=== PATIENT | male | born 1940 | race Caucasian/White ===

== ENCOUNTER 2018-09-16 16:11 | Inpatient (IN) ==
[2018-09-16] MEDS ORDERED: methylPREDNISolone SOD SUCC 125 MG/2 ML VIAL IV ONE (16:16)
[2018-09-16] MEDS ORDERED: IPRATROPIUM/ALBUTEROL 3 ML AMPUL.NEB NEB ONE ×2 (16:16→19:32)
--- NOTE | 2018-09-16 16:22 | Emergency Department Note ---
SOB HPI - General Chief Complaint: Shortness of Breath/Dyspnea Stated Complaint: shortness of breath, labored respirations Time Seen by Provider: 09/16/18 16:15 Source: patient, EMS Mode of arrival: EMS Limitations: no limitations - History of Present Illness Patient referred over from [facility] [address] by mid-level for shortness of breath arrived by ambulance. Was given 1 DuoNeb prior to coming into the ED report states chest x-ray shows possible atelectasis but no chest x-ray was sent. Patient states he has been having some increased wheezing over the past 2 weeks. Had patient had been a heavy smoker in the past but had quit years ago he states. He has been using his pulmonary medications at homeHis temperature is 98.4 the pulse is 87 respiratory rate is 26 the blood pressure 148/76 pulse ox is reading at 90% on room air the earth observations chief scientist were getting 93% with O2. Patient denies chest pain there is been no weight gain there is been no edema to the extremities denies any history of congestive heart failure - Related Data Home Medications Medication Instructions Recorded Confirmed Budesonide/Formoterol Fumarate 10.2 gm IH BID 09/16/18 09/16/18 [Symbicort 80-4.5 Mcg Inhaler] Clopidogrel Bisulfate [Plavix] 75 mg PO DAILY 09/16/18 09/16/18 Docusate Sodium [Stool Softener] 100 mg PO DAILY 09/16/18 09/16/18 Hydrochlorothiazide [Oretic] 25 mg PO DAILY 09/16/18 09/16/18 Losartan Potassium [Cozaar] 100 mg PO DAILY 09/16/18 09/16/18 Polyethylene Glycol 8000 500 gm PO DAILY PRN 09/16/18 09/16/18 [Polyethylene Glycol] RX: Pantoprazole Sodium 40 mg PO Q48 09/16/18 09/16/18 Sertraline [Zoloft] 50 mg PO HS 09/16/18 09/16/18 Simvastatin [Zocor] 40 mg PO HS 09/16/18 09/16/18 amLODIPine BESYLATE [Amlodipine 10 mg PO DAILY 09/16/18 09/16/18 Besylate] cloNIDine HCL [Catapres] 0.1 mg PO BID 09/16/18 09/16/18 Allergies Allergy/AdvReac Type Severity Reaction Status Date / Time No Known Drug Allergies Allergy Verified 09/16/18 16:17 Review of Systems Constitutional: Denies: fever, chills Cardiovascular: Denies: chest pain, palpitations Respiratory: Reports: shortness of breath, cough. Denies: wheezes, phlegm, hemoptysis Gastrointestinal: Reports: abdominal pain. Denies: nausea, vomiting Genitourinary: Denies: dysuria, frequency, urgency Musculoskeletal: Denies: back pain, joint swelling Integumentary: Denies: rash, lesions Neurological: Denies: headache, weakness Psychiatric: Denies: anxiety, depression Endocrine: Denies: fatigue Hematological/Lymphatic: Denies: easy bleeding Allergic/Immunologic: Denies: facial swelling Past Medical History - Past Medical History Medical history: Reports: COPD, CVA Family history: Reports: no significant family history - Social History smoking status: Former smoker Alcohol use: Reports: Unknown Drug use: Reports: unknown Physical Exam Limitations: no limitations Head: atraumatic, normocephalic Eye: Present: normal appearance, PERRL ENT: normal exam, normal oropharynx Neck: Present: normal inspection, full ROM, trachea midline Chest: Present: normal inspection, symmetric chest wall rise. Absent: tenderness Respiratory: Present: wheezes Cardiovascular: Present: regular rate, normal rhythm Abdominal: Present: soft. Absent: distention, tenderness Extremities: Present: normal inspection, full ROM. Absent: tenderness Neurological: Present: alert, oriented X3, CN II-XII intact Psychiatric: Present: normal affect Skin: Present: warm, dry Course Vital Signs Temperature 98.4 F 09/16/18 16:11 Pulse Rate 87 09/16/18 16:11 Respiratory Rate 26 H 09/16/18 16:11 Blood Pressure 148/76 09/16/18 16:11 Pulse Oximetry (%) 90 09/16/18 16:11 Temperature 99.5 F H 09/16/18 22:08 Pulse Rate 91 H 09/16/18 23:40 Respiratory Rate 22 09/16/18 23:40 Blood Pressure 147/65 09/16/18 22:08 Pulse Oximetry (%) 94 09/16/18 23:40 Shortness of Breath/Dyspnea - MDM Narrative Medical decision making narrative: sats remain low. started on rocephin and zithromax after blood cultures chest x- ray shows no obvious infiltrates but possible basilar atelectasis creatinine also elevated at 3.5. Dr. Muir contacted patient to be admitted - Lab Data Result diagrams: 09/16/18 16:42 09/16/18 16:41 Lab Results 09/16/18 09/16/18 09/16/18 Range/Units 00:04 16:41 16:42 WBC 12.4 H (4.5-11.0) K/mcL RBC 4.44 L (4.50-5.90) M/mcL Hgb 13.4 L (13.5-16.5) g/dL Hct 40.3 L (41.0-55.0) % MCV 90.7 (80.0-100.0) fL MCH 30.1 (26.0-34.0) pg MCHC 33.2 (31.0-36.0) g/dL RDW 13.9 (11.5-14.5) % Plt Count 505 H (140-440) K/mcL MPV 7.6 (7.4-10.4) fL Total Counted 100 Seg Neutrophils % 68 (38-78) % Band Neutrophils % Not Reportable Lymphocytes % 9 L (15-49) % Monocytes % (Manual) 10 (1-12) % Eosinophils % (Manual) 12 H (0-7) % Basophils % (Manual) 1 (0-2) % Platelet Estimate Increased A (NORMAL) RBC Morphology Normal (NORMAL) VBG Lactic Acid (0.5-2.0) mmol/L Sodium 138 (133-145) mmol/L Potassium 3.5 (3.3-5.1) mmol/L Chloride 95 L (96-108) mmol/L Carbon Dioxide 27 (22-30) mmol/L Anion Gap 16.0 (8-16) BUN 32 H (8-23) mg/dl Creatinine 3.2 H (0.7-1.2) mg/dl GFR Calculation 17 Glucose 121 H (70-105) mg/dL Calcium 9.2 (8.6-10.4) mg/dl Total Bilirubin 0.7 (0.0-1.0) mg/dL AST 19 (0-37) U/l ALT 7 (0-40) U/l Alkaline Phosphatase 100 (39-117) U/L Total Protein 7.5 (5.9-8.4) gm/dL Albumin 3.3 (3.2-5.2) gm/dL Globulin 4.2 H (2.2-3.7) gm/dL Albumin/Globulin Ratio 0.8 L (1.0-2.3) Urine Color Yellow Urine Appearance Hazy Urine pH 5.0 (5.0-9.0) Ur Specific Jackson 1.018 (1.000-1.035) Urine Protein 30 A (NEG) mg/dL Urine Glucose (UA) Negative (NEG) mg/dL Urine Ketones Neg (NEG) mg/dL Urine Occult Blood Neg (<0.03) mg/dL Urine Nitrate Neg (NEG) Urine Bilirubin Neg (NEG) mg/dL Urine Urobilinogen Neg (NEG) mg/dL Ur Leukocyte Esterase 500 A (NEG) /uL Urine RBC 2 H (0-1) /hpf Urine WBC 72 H (0-4) /hpf Ur Squamous Epith Cells 1 (0-4) /hpf Urine Bacteria 0 (0) /hpf Hyaline Casts 21 H (0-2) /lpf Urine Mucus Few (0) /hpf Ur Culture Indicated? Yes 09/16/18 Range/Units 16:42 WBC (4.5-11.0) K/mcL RBC (4.50-5.90) M/mcL Hgb (13.5-16.5) g/dL Hct (41.0-55.0) % MCV (80.0-100.0) fL MCH (26.0-34.0) pg MCHC (31.0-36.0) g/dL RDW (11.5-14.5) % Plt Count (140-440) K/mcL MPV (7.4-10.4) fL Total Counted Seg Neutrophils % (38-78) % Band Neutrophils % Lymphocytes % (15-49) % Monocytes % (Manual) (1-12) % Eosinophils % (Manual) (0-7) % Basophils % (Manual) (0-2) % Platelet Estimate (NORMAL) RBC Morphology (NORMAL) VBG Lactic Acid 1.9 (0.5-2.0) mmol/L Sodium (133-145) mmol/L Potassium (3.3-5.1) mmol/L Chloride (96-108) mmol/L Carbon Dioxide (22-30) mmol/L Anion Gap (8-16) BUN (8-23) mg/dl Creatinine (0.7-1.2) mg/dl GFR Calculation Glucose (70-105) mg/dL Calcium (8.6-10.4) mg/dl Total Bilirubin (0.0-1.0) mg/dL AST (0-37) U/l ALT (0-40) U/l Alkaline Phosphatase (39-117) U/L Total Protein (5.9-8.4) gm/dL Albumin (3.2-5.2) gm/dL Globulin (2.2-3.7) gm/dL Albumin/Globulin Ratio (1.0-2.3) Urine Color Urine Appearance Urine pH (5.0-9.0) Ur Specific Jackson (1.000-1.035) Urine Protein (NEG) mg/dL Urine Glucose (UA) (NEG) mg/dL Urine Ketones (NEG) mg/dL Urine Occult Blood (<0.03) mg/dL Urine Nitrate (NEG) Urine Bilirubin (NEG) mg/dL Urine Urobilinogen (NEG) mg/dL Ur Leukocyte Esterase (NEG) /uL Urine RBC (0-1) /hpf Urine WBC (0-4) /hpf Ur Squamous Epith Cells (0-4) /hpf Urine Bacteria (0) /hpf Hyaline Casts (0-2) /lpf Urine Mucus (0) /hpf Ur Culture Indicated? 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
--- NOTE | 2018-09-16 16:53 | XRay Report ---
CLINICAL INFORMATION: CHEST PAIN COMPARISON: 09/16/2018 FINDINGS: Moderate cardiomegaly is unchanged. Slight mediastinal widening is also stable. Pulmonary vessels are normal. Minimal bibasilar airspace disease is likely atelectasis. It has improved considerably from previous study. No effusion IMPRESSION: Minimal bibasilar airspace disease improving is likely atelectasis. No definite infiltrate Interpreted and Authenticated by: Brent Cook 09/16/18
[2018-09-16] MEDS ORDERED: AZITHROMYCIN 500 MG in DEXTROSE 5% IN WATER 250 ML IV ONE (16:56)
[2018-09-16] MEDS ORDERED: cefTRIAXone 1 GM VIAL IV ONE (16:56)
[2018-09-16 17:14] LABS: Mean Cell Volume 90.7 fL (80.0-100.0); Mean Corpuscular HGB Conc 33.2 g/dL (31.0-36.0); Platelet Count 505 K/mcL (140-440); RBC 4.44 M/mcL (4.50-5.90); Red Cell Distribution Width 13.9 % (11.5-14.5)
[2018-09-16 17:39] LABS: ALT/SGPT 7 U/l (0-40); Albumin 3.3 gm/dL (3.2-5.2); Albumin/Globulin Ratio 0.8 (1.0-2.3); Alkaline Phosphatase 100 U/L (39-117); Blood Urea Nitrogen 32 mg/dl (8-23)
[2018-09-16 17:44] LABS: Basophils % (Manual) 1 % (0-2); Eosinophils % (Manual) 12 % (0-7); Lymphocytes % 9 % (15-49); Monocytes % (Manual) 10 % (1-12); Platelet Estimate INCREASED (NORMAL); RBC Morphology NORMAL (NORMAL); Segmented Neutrophils % 68 % (38-78)
--- NOTE | 2018-09-16 18:43 | Internal Med History&Physical ---
Medical - H&P: HPI Patient information: Note initiated : 09/16/18 at 6:38 pm Service Date, if different from initiated Date: [] Patient: Scotty Toribio a 78 y/o M admitted on for shortness of breath, labored respirations. Chief Complaint: [] History of present illness: Mr. Toribio is a 78 year old M and pulmonary, history of CVA with right-sided hemiplegia presents to the ER today for evaluation of shortness of breath. According to the patient he has been short of breath going on for a week or 2, he has shortness of breath associated with cough, chest pain associated with cough, and some sputum production. The patient also was very fatigued and tired over the last few days. He has not had much to eat or drink over the last few days. He denies any other acute complaints or concerns. He denies any headache changes in vision difficulty in swallowing denies any nausea vomiting diarrhea abdominal pain denies any bowel bladder complaints denies any new joint pains. He was seen in the clinic [facility] in [place] and then sent to the emergency room for evaluation of shortness of breath and hypoxia. He was transferred from the emergency room over there to this hospital. On presentation the patient was afebrile temperature 98.4 heart rate 88 blood pressure 148/76 breathing 27/min saturating 91% on 5 L The labs show WBC of 12.4, hemoglobin 13.4 platelets 505 lactic acid 1.9 sodium 138 potassium 3.5 bicarbonate 27 creatinine elevated at 3.2 was 1.5 in February 2018. ABG was done shows pH of 7.48 PCO2 39 PO2 60% on 5 L of oxygen. Chest x-ray shows infiltrates versus atelectasis likely atelectasis. Patient is being admitted to the hospital for further management All systems: reviewed and no additional remarkable complaints except as stated (as per HPI rest negative) Medical - H&P: PMH Medical history: CVA with right-sided hemiparesis hemiplegia BPH Hypertension Hyperlipidemia GERD COPD Morbid obesity Macular degeneration Surgical history: Right ankle surgery Family history: reviewed and not pertinent Social history: Lives with a friend who helps him take care of him, Ex-smoker Occasional EtOH Medical - H&P: Meds Home Medications Medication Instructions Recorded Confirmed Type Budesonide/Formoterol Fumarate 10.2 gm IH BID 09/16/18 09/16/18 History [Symbicort 80-4.5 Mcg Inhaler] Clopidogrel Bisulfate [Plavix] 75 mg PO DAILY 09/16/18 09/16/18 History Docusate Sodium [Stool Softener] 100 mg PO DAILY 09/16/18 09/16/18 History Hydrochlorothiazide [Oretic] 25 mg PO DAILY 09/16/18 09/16/18 History Losartan Potassium [Cozaar] 100 mg PO DAILY 09/16/18 09/16/18 History Pantoprazole Sodium 40 mg PO Q48 09/16/18 09/16/18 History Polyethylene Glycol 8000 500 gm PO DAILY PRN 09/16/18 09/16/18 History [Polyethylene Glycol] Sertraline [Zoloft] 50 mg PO HS 09/16/18 09/16/18 History Simvastatin [Zocor] 40 mg PO HS 09/16/18 09/16/18 History amLODIPine BESYLATE [Amlodipine 10 mg PO DAILY 09/16/18 09/16/18 History Besylate] cloNIDine HCL [Catapres] 0.1 mg PO BID 09/16/18 09/16/18 History Allergies Allergy/AdvReac Type Severity Reaction Status Date / Time No Known Drug Allergies Allergy Verified 09/16/18 16:17 Medical - H&P: Exam - Constitutional Vitals: Temp Pulse Resp BP Pulse Ox 98.4 F 88 27 H 129/62 91 09/16/18 16:11 09/16/18 18:02 09/16/18 18:02 09/16/18 18:02 09/16/18 18:02 Exam: GENERAL: The patient is a well-developed, morbidly obese in no apparent distress. Is alert and oriented x3. VITAL SIGNS: Reviewed and as noted elsewhere. HEENT: Head is normocephalic and atraumatic. Extraocular muscles are intact. Pupils are equal, round, and reactive to light. Nares appeared normal. Mouth a ppears any without lesions. Mucous membranes are moist. NECK: Normal to inspection, Supple, No lymphadenopathy or thyromegaly. LUNGS: Air entry equal on both sides,decreased air entry stan, proloned exp phase, bibasilar crackles. No accessory muscles of respiration, pt speaking full sentences. HEART: Regular rate and rhythm normal, S1 and S2 heard, no Gallop, S3 or Rub Noted, No Gross murmur heard. ABDOMEN: Soft, nontender, and nondistended. Positive bowel sounds. No hepatosplenomegaly was noted. Large pannus EXTREMITIES: No cyanosis, clubbing, rash, lesions or edema. NEUROLOGIC: Cranial nerves II through XII are grossly intact. Right sided weakness. PSYCHIATRIC: Normal affect, Normal Mood. Appropriate Behavior. SKIN: No ulceration or wounds noted, No jaundice, No rash noted. Medical - H&P: Reslt - Labs CBC & Chem 7: 09/16/18 16:42 09/16/18 16:41 Labs: Short CBC 09/16/18 Range/Units 16:42 WBC 12.4 H (4.5-11.0) K/mcL Hgb 13.4 L (13.5-16.5) g/dL Hct 40.3 L (41.0-55.0) % Plt Count 505 H (140-440) K/mcL BMP 09/16/18 16:41 Sodium 138 Potassium 3.5 Chloride 95 L Carbon Dioxide 27 BUN 32 H Creatinine 3.2 H Glucose 121 H Calcium 9.2 Liver Function 09/16/18 Range/Units 16:41 Total Bilirubin 0.7 (0.0-1.0) mg/dL AST 19 (0-37) U/l ALT 7 (0-40) U/l Alkaline Phosphatase 100 (39-117) U/L Albumin 3.3 (3.2-5.2) gm/dL Medical - H&P: A/P - Narrative A/P Narrative: A/P Acute COPD exacerbation Acute hypoxic respiratory failure Pneumonia, community acquired GERD Morbid Obesity BMI > 40 Hypertension Hyperlipidemia Acute on Chronic Renal Failure Plan Admit to [facility] status IV fluids IV steroids, duonebs Hold hctz/losartan Resume home meds as appropriate trend renal function DVT hep sq Diet regular Full code
[2018-09-16] MEDS ORDERED: POTASSIUM CHLORIDE 20 MEQ PACKET PO ONE (19:22)
[2018-09-16] MEDS ORDERED: ONDANSETRON 4 MG/2 ML VIAL IV PRN (19:22)
[2018-09-16] MEDS ORDERED: ACETAMINOPHEN 325 MG TABLET PO PRN (19:22)
[2018-09-16] MEDS ORDERED: oxyCODONE/APAP 5/325MG TABLET PO PRN (19:22)
[2018-09-16] MEDS ORDERED: NALOXONE HCL 0.4 MG/ML VIAL IV PRN (19:22)
[2018-09-16] MEDS ORDERED: LEVOFLOXACIN 750 MG/150 ML BAG IV ONE (19:30)
[2018-09-16] MEDS: IPRATROPIUM/ALBUTEROL 3 ML AMPUL.NEB NEB SCH ×2 (20:02→23:28)
[2018-09-16] MEDS: 0.9 % SODIUM CHLORIDE 1,000 ML IV SCH (20:03)
[2018-09-16] MEDS: HEPARIN 5,000 UNIT/ML VIAL SQ SCH (20:17)
[2018-09-16] MEDS: cloNIDine HCL 0.1 MG TABLET PO SCH (20:17)
[2018-09-16] MEDS: SIMVASTATIN 40 MG TABLET PO SCH (20:19)
[2018-09-16] MEDS: SERTRALINE 50 MG TABLET PO SCH (20:20)
[2018-09-16] MEDS: FORMOTEROL FUMARATE PO SCH (20:20)
[2018-09-16] MEDS: BUDESONIDE PO SCH (20:20)
[2018-09-16] MEDS: 0.9 % SODIUM CHLORIDE 10 ML SYRINGE IV SCH (22:39)
[2018-09-16] MEDS: methylPREDNISolone SOD SUCC 125 MG/2 ML VIAL IV SCH (22:39)
[2018-09-17 00:28] LABS: Appearance,Urine HAZY; Bacteria,Urine 0 /hpf (0); Bilirubin,Urine NEG (NEG); Color,Urine YELLOW; Glucose,Urine (UA) NEGATIVE (NEG); Leukocyte Esterase,Urine 500 /uL (NEG); Mucus,Urine FEW /hpf (0); Protein,Urine 30 mg/dL (NEG); Specific Gravity,Urine 1.018 (1.000-1.035); Urine Blood NEG mg/dL (<0.03); Urine Hyaline Cast 21 /lpf (0-2); Urine RBC 2 /hpf (0-1); Urine Squamous Epithelial Cell 1 /hpf (0-4); Urine WBC 72 /hpf (0-4); Urobilinogen,Urine NEG (NEG)
[2018-09-17] MEDS: IPRATROPIUM/ALBUTEROL 3 ML AMPUL.NEB NEB SCH ×5 (04:28→18:29)
[2018-09-17] MEDS: 0.9 % SODIUM CHLORIDE 10 ML SYRINGE IV SCH ×3 (05:32→20:43)
[2018-09-17] MEDS: methylPREDNISolone SOD SUCC 125 MG/2 ML VIAL IV SCH ×3 (05:32→21:33)
[2018-09-17 05:39] LABS: Basophils # (Auto) 0 K/mcL (0.0-0.3); Basophils % (Auto) 0 % (0.0-2.0); Eosinophils # (Auto) 0 K/mcL (0.0-0.7); Eosinophils % (Auto) 0.1 % (0.0-7.0); Granulocytes % (Auto) 94.4 % (38.0-78.0); Lymphocytes # (Auto) 0.4 K/mcL (1.5-4.8); Lymphocytes % (Auto) 4.7 % (15.5-49.0); Mean Cell Volume 91.7 fL (80.0-100.0); Mean Corpuscular HGB Conc 32.7 g/dL (31.0-36.0); Monocytes # (Auto) 0.1 K/mcL (0.1-0.9); Monocytes % (Auto) 0.8 % (1.0-12.0); Platelet Count 492 K/mcL (140-440); RBC 3.96 M/mcL (4.50-5.90); Red Cell Distribution Width 13.8 % (11.5-14.5)
[2018-09-17 05:55] LABS: ALT/SGPT 7 U/l (0-40); Albumin 3.1 gm/dL (3.2-5.2); Albumin/Globulin Ratio 0.8 (1.0-2.3); Alkaline Phosphatase 88 U/L (39-117); Bilirubin,Direct < 0.2 mg/dL (0.0-0.3); Blood Urea Nitrogen 36 mg/dl (8-23); Gamma Glutamyl Transpeptidase 19 U/L (8-61); Uric Acid 10.1 mg/dL (2.5-8.0)
[2018-09-17] MEDS: PANTOPRAZOLE 40 MG TABLET PO SCH (07:13)
[2018-09-17] MEDS: 0.9 % SODIUM CHLORIDE 1,000 ML IV SCH (07:13)
[2018-09-17] MEDS ORDERED: LEVOFLOXACIN 500 MG/100 ML BAG IV SCH (09:00)
[2018-09-17] MEDS: CLOPIDOGREL 75 MG TABLET PO SCH (10:21)
[2018-09-17] MEDS: HEPARIN 5,000 UNIT/ML VIAL SQ SCH ×2 (10:21→20:43)
[2018-09-17] MEDS: cloNIDine HCL 0.1 MG TABLET PO SCH ×2 (10:22→20:41)
[2018-09-17] MEDS: amLODIPine 10 MG TABLET PO SCH (10:22)
[2018-09-17] MEDS: FORMOTEROL FUMARATE PO SCH ×2 (10:22→20:43)
[2018-09-17] MEDS: DOCUSATE SODIUM 100 MG CAPSULE PO SCH (10:22)
[2018-09-17] MEDS: BUDESONIDE PO SCH ×2 (10:22→20:43)
--- NOTE | 2018-09-17 11:40 | Internal Med Progress Note ---
Medical - PN: Subj Patient information: Note initiated : 09/17/18 at 11:37 am Service Date, if different from initiated Date: [] Patient: Scotty Toribio 78 y/o M admitted on 09/16/18 for shortness of breath, labored respirations. Chief Complaint: [] Interval history: Mr. Toribio is a 78 year old M and pulmonary, history of CVA with right-sided hemiplegia presents to the ER today for evaluation of shortness of breath. According to the patient he has been short of breath going on for a week or 2, he has shortness of breath associated with cough, chest pain associated with cough, and some sputum production. The patient also was very fatigued and tired over the last few days. He has not had much to eat or drink over the last few days. He denies any other acute complaints or concerns. He denies any headache changes in vision difficulty in swallowing denies any nausea vomiting diarrhea abdominal pain denies any bowel bladder complaints denies any new joint pains. He was seen in the clinic [facility] in [place] and then sent to the emergency room for evaluation of shortness of breath and hypoxia. He was transferred from the emergency room over there to this hospital. On presentation the patient was afebrile temperature 98.4 heart rate 88 blood pressure 148/76 breathing 27/min saturating 91% on 5 L The labs show WBC of 12.4, hemoglobin 13.4 platelets 505 lactic acid 1.9 sodium 138 potassium 3.5 bicarbonate 27 creatinine elevated at 3.2 was 1.5 in February 2018. ABG was done shows pH of 7.48 PCO2 39 PO2 60% on 5 L of oxygen. Chest x-ray shows infiltrates versus atelectasis likely atelectasis. Patient is being admitted to the hospital for further management 09/17 Patient seen and examined no acute overnight events, feels breathing is somewhat better than yesterday. No new complaints or concerns reported. Patient does not want every 4 hours duo nebs we will switch to every 6 hours, WBC count trending down, renal function slightly worsened. Plan for renal sonogram. Pertinent ROS: Denies headache, dizziness Denies chest pain, palpitations Stable cough and shortness of breath Denies abdominal pain, nausea or vomiting. - Constitutional Vitals: Vital Signs Temp Pulse Resp BP Pulse Ox 98.5 F 85 16 137/61 94 09/17/18 07:20 09/17/18 07:41 09/17/18 07:35 09/17/18 07:20 09/17/18 07:41 Period Temp Pulse Resp BP Sys/Porter Pulse Ox Last 24 Hr 98.2 F-99.8 F 80-91 16-30 123-148/60-76 87-94 Intake and Output 09/16/18 09/17/18 09/17/18 21:59 05:59 13:59 Intake Total 400 / 880 480 / 880 1500 / 1500 Output Total 200 / 200 100 / 100 Balance 400 / 680 280 / 680 1400 / 1400 Weight 260 lb 8 oz Intake & Output: Intake & Output 09/16/18 09/17/18 09/17/18 21:59 05:59 13:59 Intake Total 400 / 880 480 / 880 1500 / 1500 Output Total 200 / 200 100 / 100 Balance 400 / 680 280 / 680 1400 / 1400 Weight 260 lb 8 oz Intake: IV 400 / 400 1000 / 1000 Sodium Chloride 0.9% 1,000 ml @ 1000 / 1000 100 mls/hr IV .Q10H [facility] Rx#: [id number] Zithromax 500 mg In Dextrose 5% 250 / 250 in Water 250 ml @ 250 mls/hr IV ONCE ONE Rx#:[id number] Oral 220 / 220 500 / 500 GI Tube Flush 260 / 260 Output: Void Amount 200 / 200 100 / 100 Other: Meal Breakfast Percent of Meal Consumed 100% Urine Appearance Clear Urine Color Dark Urine Odor Strong Stool Size Small Stool Color Brown Stool Consistency Soft # Voids 1 # Bowel Movements 1 Exam: Constitutional; Afebrile, cooperative, alert, not in distress. Eyes- No icterus, , No periorbital swelling Ears- Ext ear normal, hearing normal to conversation. Neck- Midline trachea, supple Respiratory system: Air Entry equal on both sides, decreased air entry bilaterally, mild expiratory wheezing noted, mild bilateral inspiratory crackles at the bases CVS- Rate rhythm regular, S1,S2 heard, no gallop, no rub. Abdomen- Soft nontender abdomen, no organomegaly, no tenderness, no guarding or rigidity, YARDER ENGINEER- AOOx3, moving all extremities, right-sided hemiparesis Medical - PN: Obj Da - Labs CBC & Chem 7: 09/17/18 04:15 09/17/18 04:15 Labs: Abnormal Lab Results 09/17/18 09/17/18 09/16/18 04:15 04:15 16:42 WBC 12.4 H RBC 3.96 L 4.44 L Hgb 11.9 L 13.4 L Hct 36.3 L 40.3 L Plt Count 492 H 505 H Gran % 94.4 H Lymph % (Auto) 4.7 L Walsh % (Auto) 0.8 L Lymph # (Auto) 0.4 L Lymphocytes % 9 L Eosinophils % (Manual) 12 H Platelet Estimate Increased A Chloride Anion Gap 17.0 H BUN 36 H Creatinine 3.5 H Glucose 185 H Uric Acid 10.1 H Lactate Dehydrogenase 258 H Albumin 3.1 L Globulin 3.9 H Albumin/Globulin Ratio 0.8 L Urine Protein Ur Leukocyte Esterase Urine RBC Urine WBC Hyaline Casts 09/16/18 09/16/18 16:41 00:04 WBC RBC Hgb Hct Plt Count Gran % Lymph % (Auto) Walsh % (Auto) Lymph # (Auto) Lymphocytes % Eosinophils % (Manual) Platelet Estimate Chloride 95 L Anion Gap BUN 32 H Creatinine 3.2 H Glucose 121 H Uric Acid Lactate Dehydrogenase Albumin Globulin 4.2 H Albumin/Globulin Ratio 0.8 L Urine Protein 30 A Ur Leukocyte Esterase 500 A Urine RBC 2 H Urine WBC 72 H Hyaline Casts 21 H Meds: Medications Acetaminophen (Tylenol) 650 mg PO Q6HP PRN PRN Reason: PAIN/FEVER > 101 Last Admin: 09/16/18 20:17 Dose: 650 mg Documented by: Albuterol/Ipratropium (Duoneb) 3 ml NEB Q4HRT [facility] Last Admin: 09/17/18 11:05 Dose: Not Given Documented by: Amlodipine Besylate (Norvasc) 10 mg PO DAILY [facility] Last Admin: 09/17/18 10:22 Dose: 10 mg Documented by: Clonidine HCl (Catapres) 0.1 mg PO BID [facility] Last Admin: 09/17/18 10:22 Dose: 0.1 mg Documented by: Clopidogrel Bisulfate (Plavix) 75 mg PO DAILY [facility] Last Admin: 09/17/18 10:21 Dose: 75 mg Documented by: Docusate Sodium (Colace) 100 mg PO DAILY [facility] Last Admin: 09/17/18 10:22 Dose: 100 mg Documented by: Heparin Sodium (Porcine) (Heparin) 5,000 unit SQ Q12 [facility] Last Admin: 09/17/18 10:21 Dose: 5,000 unit Documented by: Sodium Chloride (Sodium Chloride 0.9%) 1,000 mls @ 100 mls/hr IV .Q10H [facility] Stop: 09/17/18 15:21 Last Admin: 09/17/18 07:13 Dose: 100 mls/hr Documented by: Levofloxacin (Levaquin) 750 mg in 150 mls @ 100 mls/hr IV Q48H [facility] Methylprednisolone Sodium Succinate (Solu-Medrol) 62.5 mg IV Q8 [facility] Last Admin: 09/17/18 05:32 Dose: 62.5 mg Documented by: Naloxone HCl (Narcan) 0.1 mg IV Q2MIN PRN PRN Reason: Opiate Reversal Ondansetron HCl (Zofran) 4 mg IV Q4HP PRN PRN Reason: Nausea And Vomiting Oxycodone/Acetaminophen (Percocet 5-325 Mg) 1 tab PO Q4HP PRN PRN Reason: Pain not responding to tylenol Pantoprazole Sodium (Protonix) 40 mg PO QAMAC [facility] Last Admin: 09/17/18 07:13 Dose: 40 mg Documented by: Budesonide/Formoterol Fumarate [Symbicort 80-4.5) Inh 2 dose PO BID [facility] Last Admin: 09/17/18 10:22 Dose: Not Given Documented by: Pneumococcal Polyvalent Vaccine (Pneumovax 23) 0.5 ml IM .ONCE ONE Stop: 09/18/18 10:01 Sertraline HCl (Zoloft) 50 mg PO [facility] Last Admin: 09/16/18 20:20 Dose: 50 mg Documented by: Simvastatin (Zocor) 40 mg PO [facility] Last Admin: 09/16/18 20:19 Dose: 40 mg Documented by: Sodium Chloride (Saline Flush) 10 ml IV Q8 [facility] Last Admin: 09/17/18 05:32 Dose: Not Given Documented by: Medical - PN: A/P - Time Spent With Patient Total time spent is greater than 50% in coordination of care (as documented) at patient's floor/unit and/or counseling patient: - Narrative A/P Narrative: A/P Acute COPD exacerbation Acute hypoxic respiratory failure Pneumonia, community acquired GERD Morbid Obesity BMI > 40 Hypertension Hyperlipidemia Acute on Chronic Renal Failure Plan Monitor in telemetry Get renal ultrasound Continue with IV fluids Continue levofloxacin per renal dose Continue with IV steroids, duonebs Hold hctz/losartan Resume home meds as appropriate Occupational therapy and physical therapy rehab DVT hep sq Diet regular Full code Medical - PN: Qual - Stroke Symptom Onset Unknown: No - VTE Deep Vein Thrombosis/Pulmonary Embolism Present on Admission: No
--- NOTE | 2018-09-17 13:42 | Ultrasound Report ---
CLINICAL INFORMATION: renal failure COMPARISON: None. FINDINGS: Both kidneys are normal and symmetric in size, position and configuration: The right is 11.8 x 8 cm and the left is 12 x 5 cm. There are multiple cysts scattered throughout both kidneys ranging up to 12 cm in the inferior pole right kidney. Echotexture is mildly elevated compatible with advanced age and medical renal disease. There is no hydronephrosis, stone or solid lesion. Urinary bladder volume is 117 cc (patient voided prior to the exam) . No focal lesions in the bladder IMPRESSION: Mildly hyperechoic kidneys compatible with bilateral medical renal disease and advanced age Scattered simple cysts in both kidneys ranging up to 12 cm inferior pole right kidney Urinary bladder is normal Interpreted and Authenticated by: Brent Cook 09/17/18
[2018-09-17] MEDS ORDERED: VANCOMYCIN PER PHARMACY IV SCH (17:00)
[2018-09-17] MEDS ORDERED: VANCOMYCIN 1,500 MG in 0.9 % SODIUM CHLORIDE 500 ML IV ONE (18:00)
[2018-09-17] MEDS: SIMVASTATIN 40 MG TABLET PO SCH (20:41)
[2018-09-17] MEDS: SERTRALINE 50 MG TABLET PO SCH (20:41)
[2018-09-18] MEDS: IPRATROPIUM/ALBUTEROL 3 ML AMPUL.NEB NEB SCH ×4 (00:17→18:32)
[2018-09-18] MEDS: methylPREDNISolone SOD SUCC 125 MG/2 ML VIAL IV SCH ×3 (05:15→22:37)
[2018-09-18] MEDS: 0.9 % SODIUM CHLORIDE 10 ML SYRINGE IV SCH ×3 (05:15→22:38)
[2018-09-18 06:44] LABS: Basophils # (Auto) 0 K/mcL (0.0-0.3); Basophils % (Auto) 0 % (0.0-2.0); Eosinophils # (Auto) 0 K/mcL (0.0-0.7); Eosinophils % (Auto) 0 % (0.0-7.0); Granulocytes % (Auto) 95.3 % (38.0-78.0); Lymphocytes # (Auto) 0.4 K/mcL (1.5-4.8); Lymphocytes % (Auto) 2.2 % (15.5-49.0); Mean Cell Volume 92.6 fL (80.0-100.0); Mean Corpuscular HGB Conc 32.9 g/dL (31.0-36.0); Monocytes # (Auto) 0.4 K/mcL (0.1-0.9); Monocytes % (Auto) 2.5 % (1.0-12.0); Platelet Count 458 K/mcL (140-440); RBC 3.71 M/mcL (4.50-5.90); Red Cell Distribution Width 14.4 % (11.5-14.5)
[2018-09-18 07:01] LABS: ALT/SGPT 6 U/l (0-40); Albumin/Globulin Ratio 0.9 (1.0-2.3); Alkaline Phosphatase 89 U/L (39-117); Bilirubin,Direct < 0.2 mg/dL (0.0-0.3); Blood Urea Nitrogen 43 mg/dl (8-23); Gamma Glutamyl Transpeptidase 19 U/L (8-61)
[2018-09-18] MEDS: PANTOPRAZOLE 40 MG TABLET PO SCH (07:10)
[2018-09-18] MEDS: HEPARIN 5,000 UNIT/ML VIAL SQ SCH ×2 (08:57→22:38)
[2018-09-18] MEDS: DOCUSATE SODIUM 100 MG CAPSULE PO SCH (08:57)
[2018-09-18] MEDS: cloNIDine HCL 0.1 MG TABLET PO SCH ×2 (08:57→22:39)
[2018-09-18] MEDS: FORMOTEROL FUMARATE PO SCH (08:58)
[2018-09-18] MEDS: BUDESONIDE PO SCH (08:58)
[2018-09-18] MEDS: amLODIPine 10 MG TABLET PO SCH (08:58)
[2018-09-18] MEDS: CLOPIDOGREL 75 MG TABLET PO SCH (08:58)
[2018-09-18] MEDS ORDERED: LEVOFLOXACIN 750 MG/150 ML BAG IV SCH (09:00)
[2018-09-18] MEDS ORDERED: VANCOMYCIN 1,000 MG in 0.9 % SODIUM CHLORIDE 250 ML IV ONE (10:00)
[2018-09-18] MEDS ORDERED: PNEUMOCOCCAL 23-VAL P-SAC VAC 0.5 ML SYRINGE IM ONE (10:00)
[2018-09-18] MEDS ORDERED: 0.9 % SODIUM CHLORIDE 1,000 ML IV SCH (11:45)
[2018-09-18] MEDS: 0.9 % SODIUM CHLORIDE 1,000 ML IV SCH (12:00)
[2018-09-18] MEDS ORDERED: VANCOMYCIN PER PHARMACY IV SCH (13:06)
[2018-09-18] MEDS ORDERED: ACETAMINOPHEN 325 MG TABLET PO PRN (13:06)
[2018-09-18] MEDS ORDERED: ONDANSETRON 4 MG/2 ML VIAL IV PRN (13:06)
[2018-09-18] MEDS ORDERED: oxyCODONE/APAP 5/325MG TABLET PO PRN (13:06)
[2018-09-18] MEDS ORDERED: NALOXONE HCL 0.4 MG/ML VIAL IV PRN (13:06)
--- NOTE | 2018-09-18 13:38 | Internal Med Progress Note ---
Medical - PN: Subj Patient information: Note initiated : 09/18/18 at 1:35 pm Service Date, if different from initiated Date: [] Patient: Scotty Toribio a 78 y/o M admitted on 09/16/18 for shortness of breath, labored respirations. Chief Complaint: [] Interval history: Mr. Toribio is a 78 year old M and pulmonary, history of CVA with right-sided hemiplegia presents to the ER today for evaluation of shortness of breath. According to the patient he has been short of breath going on for a week or 2, he has shortness of breath associated with cough, chest pain associated with cough, and some sputum production. The patient also was very fatigued and tired over the last few days. He has not had much to eat or drink over the last few days. He denies any other acute complaints or concerns. He denies any headache changes in vision difficulty in swallowing denies any nausea vomiting diarrhea abdominal pain denies any bowel bladder complaints denies any new joint pains. He was seen in the clinic [facility] in [place] and then sent to the emergency room for evaluation of shortness of breath and hypoxia. He was transferred from the emergency room over there to this hospital. On presentation the patient was afebrile temperature 98.4 heart rate 88 blood pressure 148/76 breathing 27/min saturating 91% on 5 L The labs show WBC of 12.4, hemoglobin 13.4 platelets 505 lactic acid 1.9 sodium 138 potassium 3.5 bicarbonate 27 creatinine elevated at 3.2 was 1.5 in February 2018. ABG was done shows pH of 7.48 PCO2 39 PO2 60% on 5 L of oxygen. Chest x-ray shows infiltrates versus atelectasis likely atelectasis. Patient is being admitted to the hospital for further management 09/17 Patient seen and examined no acute overnight events, feels breathing is somewhat better than yesterday. No new complaints or concerns reported. Patient does not want every 4 hours duo nebs we will switch to every 6 hours, WBC count trending down, renal function slightly worsened. Plan for renal sonogram. 09/18 Patient seen and examined, no acute overnight events or complaints. Feels much better he is nearly off oxygen now. Blood cultures positive for coag negative staph in 1 bottle only repeat cultures pending. Patient is on vancomycin. Renal function is improving, WBC up today [due to steroids?] Pertinent ROS: Denies headache, dizziness Denies chest pain, palpitations Denies cough or shortness of breath Denies abdominal pain, nausea or vomiting. - Constitutional Vitals: Vital Signs Temp Pulse Resp BP Pulse Ox 98.7 F 90 24 H 139/55 89 L 09/18/18 12:00 09/18/18 12:00 09/18/18 12:00 09/18/18 12:00 09/18/18 12:00 Period Temp Pulse Resp BP Sys/Porter Pulse Ox Last 24 Hr 98.4 F-99.7 F 88-105 20-28 125-144/55-66 89-96 Intake and Output 09/17/18 09/18/18 09/18/18 21:59 05:59 13:59 Intake Total 980 / 3200 360 / 3200 860 / 860 Output Total 375 / 950 350 / 950 375 / 375 Balance 605 / 2250 10 / 2250 485 / 485 Weight 269 lb 5 oz Intake & Output: Intake & Output 09/17/18 09/18/18 09/18/18 21:59 05:59 13:59 Intake Total 980 / 3200 360 / 3200 860 / 860 Output Total 375 / 950 350 / 950 375 / 375 Balance 605 / 2250 10 / 2250 485 / 485 Weight 269 lb 5 oz Intake: IV 500 / 1500 Vancomycin 1,500 mg In Sodium 500 / 500 Chloride 0.9% 500 ml @ 333.3 mls/hr IV ONCE ONE Rx#: [id number] Oral 480 / 1700 360 / 1700 860 / 860 Output: Void Amount 375 / 950 350 / 950 375 / 375 Other: Meal Nourishment/Supplement Lunch Percent of Meal Consumed 50% 100% Feeding Ability Total Assistance Urine Appearance Clear Urine Color Dark Yellow Bright Yellow Urine Odor Strong Strong Stool Size Smear Stool Color Brown # Voids 1 1 # Bowel Movements 1 Exam: Constitutional; Afebrile, cooperative, alert, not in distress. Morbidly obese Eyes- No icterus, , No periorbital swelling Ears- Ext ear normal, hearing normal to conversation. Neck- Midline trachea, supple Respiratory system: Air Entry equal on both sides [improved air entry on both sides], No crackles or wheezing, no rhonchi. CVS- Rate rhythm regular, S1,S2 heard, no gallop, no rub. 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, Medical - PN: Obj Da - Labs CBC & Chem 7: 09/18/18 04:00 09/18/18 04:00 Labs: Abnormal Lab Results 09/18/18 09/18/18 09/17/18 04:00 04:00 04:15 WBC 18.0 H RBC 3.71 L Hgb 11.3 L Hct 34.4 L Plt Count 458 H Gran % 95.3 H Lymph % (Auto) 2.2 L Swift % (Auto) Gran # 17.2 H Lymph # (Auto) 0.4 L Lymphocytes % Eosinophils % (Manual) Platelet Estimate Chloride Anion Gap 17.0 H BUN 43 H 36 H Creatinine 3.1 H 3.5 H Glucose 215 H 185 H Uric Acid 10.0 H 10.1 H Lactate Dehydrogenase 260 H 258 H Albumin 3.0 L 3.1 L Globulin 3.9 H Albumin/Globulin Ratio 0.9 L 0.8 L Urine Protein Ur Leukocyte Esterase Urine RBC Urine WBC Hyaline Casts 09/17/18 09/16/18 09/16/18 04:15 16:42 16:41 WBC 12.4 H RBC 3.96 L 4.44 L Hgb 11.9 L 13.4 L Hct 36.3 L 40.3 L Plt Count 492 H 505 H Gran % 94.4 H Lymph % (Auto) 4.7 L Swift % (Auto) 0.8 L Gran # Lymph # (Auto) 0.4 L Lymphocytes % 9 L Eosinophils % (Manual) 12 H Platelet Estimate Increased A Chloride 95 L Anion Gap BUN 32 H Creatinine 3.2 H Glucose 121 H Uric Acid Lactate Dehydrogenase Albumin Globulin 4.2 H Albumin/Globulin Ratio 0.8 L Urine Protein Ur Leukocyte Esterase Urine RBC Urine WBC Hyaline Casts 09/16/18 00:04 WBC RBC Hgb Hct Plt Count Gran % Lymph % (Auto) Swift % (Auto) Gran # Lymph # (Auto) Lymphocytes % Eosinophils % (Manual) Platelet Estimate Chloride Anion Gap BUN Creatinine Glucose Uric Acid Lactate Dehydrogenase Albumin Globulin Albumin/Globulin Ratio Urine Protein 30 A Ur Leukocyte Esterase 500 A Urine RBC 2 H Urine WBC 72 H Hyaline Casts 21 H Meds: Medications Acetaminophen (Tylenol) 650 mg PO Q6HP PRN PRN Reason: PAIN/FEVER > 101 Albuterol/Ipratropium (Duoneb) 3 ml NEB Q6HRT [facility] Amlodipine Besylate (Norvasc) 10 mg PO DAILY [facility] Clonidine HCl (Catapres) 0.1 mg PO BID [facility] Clopidogrel Bisulfate (Plavix) 75 mg PO DAILY [facility] Docusate Sodium (Colace) 100 mg PO DAILY [facility] Heparin Sodium (Porcine) (Heparin) 5,000 unit SQ Q12 [facility] Levofloxacin (Levaquin) 750 mg in 150 mls @ 100 mls/hr IV Q48H [facility] Sodium Chloride (Sodium Chloride 0.9%) 1,000 mls @ 75 mls/hr IV .[id number] [facility] Last Admin: 09/18/18 12:00 Dose: 75 mls/hr Documented by: Methylprednisolone Sodium Succinate (Solu-Medrol) 62.5 mg IV Q8 [facility] Naloxone HCl (Narcan) 0.1 mg IV Q2MIN PRN PRN Reason: Opiate Reversal Ondansetron HCl (Zofran) 4 mg IV Q4HP PRN PRN Reason: Nausea And Vomiting Oxycodone/Acetaminophen (Percocet 5-325 Mg) 1 tab PO Q4HP PRN PRN Reason: Pain not responding to tylenol Pantoprazole Sodium (Protonix) 40 mg PO QAMAC [facility] Symbicort 80-4.5 (Inhaler) 2 dose PO BID [facility] Sertraline HCl (Zoloft) 50 mg PO HS [facility] Simvastatin (Zocor) 40 mg PO HS [facility] Sodium Chloride (Saline Flush) 10 ml IV Q8 [facility] Vancomycin HCl (Vancomycin Per Pharmacy) 1 order IV UD [facility] Medical - PN: A/P - Time Spent With Patient Total time spent is greater than 50% in coordination of care (as documented) at patient's floor/unit and/or counseling patient: - Narrative A/P Narrative: A/P Acute COPD exacerbation Acute hypoxic respiratory failure Pneumonia, community acquired GERD Morbid Obesity BMI > 40 Hypertension Hyperlipidemia Acute on Chronic Renal Failure Gram-positive cocci in blood cultures likely contaminant Plan Transfer to [facility] status Renal ultrasound shows medical renal disease cysts Continue with IV fluids Continue levofloxacin per renal dose, vancomycin added given gram-positive cocci in blood cultures Continue with IV steroids, duonebs Hold hctz/losartan Resume home meds as appropriate Occupational therapy and physical therapy rehab DVT hep sq Diet regular Full code If remains stable can be discharged tomorrow Medical - PN: Qual - Stroke Symptom Onset Unknown: No - VTE Deep Vein Thrombosis/Pulmonary Embolism Present on Admission: No
[2018-09-18] MEDS ORDERED: SIMVASTATIN 40 MG TABLET PO SCH (21:00)
[2018-09-18] MEDS ORDERED: SERTRALINE 50 MG TABLET PO SCH (21:00)
[2018-09-18] MEDS: SYMBICORT PO SCH (22:39)
[2018-09-19] MEDS: IPRATROPIUM/ALBUTEROL 3 ML AMPUL.NEB NEB SCH ×3 (00:10→15:40)
[2018-09-19] MEDS: 0.9 % SODIUM CHLORIDE 1,000 ML IV SCH ×2 (02:46→15:40)
[2018-09-19] MEDS: 0.9 % SODIUM CHLORIDE 10 ML SYRINGE IV SCH ×2 (05:43→13:15)
[2018-09-19] MEDS: methylPREDNISolone SOD SUCC 125 MG/2 ML VIAL IV SCH ×2 (05:43→13:14)
[2018-09-19 05:55] LABS: Basophils # (Auto) 0 K/mcL (0.0-0.3); Basophils % (Auto) 0 % (0.0-2.0); Eosinophils # (Auto) 0 K/mcL (0.0-0.7); Eosinophils % (Auto) 0 % (0.0-7.0); Granulocytes % (Auto) 96.1 % (38.0-78.0); Lymphocytes # (Auto) 0.3 K/mcL (1.5-4.8); Lymphocytes % (Auto) 1.8 % (15.5-49.0); Mean Cell Volume 91.1 fL (80.0-100.0); Mean Corpuscular HGB Conc 33.8 g/dL (31.0-36.0); Monocytes # (Auto) 0.4 K/mcL (0.1-0.9); Monocytes % (Auto) 2.1 % (1.0-12.0); Platelet Count 448 K/mcL (140-440); RBC 3.87 M/mcL (4.50-5.90); Red Cell Distribution Width 13.9 % (11.5-14.5)
[2018-09-19 06:20] LABS: ALT/SGPT 7 U/l (0-40); Albumin 3.3 gm/dL (3.2-5.2); Alkaline Phosphatase 90 U/L (39-117); Bilirubin,Direct < 0.2 mg/dL (0.0-0.3); Blood Urea Nitrogen 48 mg/dl (8-23); Gamma Glutamyl Transpeptidase 21 U/L (8-61); Uric Acid 8.7 mg/dL (2.5-8.0)
[2018-09-19] MEDS ORDERED: PANTOPRAZOLE 40 MG TABLET PO SCH (07:30)
[2018-09-19] MEDS: HEPARIN 5,000 UNIT/ML VIAL SQ SCH (08:52)
[2018-09-19] MEDS: cloNIDine HCL 0.1 MG TABLET PO SCH (08:52)
[2018-09-19] MEDS: SYMBICORT PO SCH (08:53)
[2018-09-19] MEDS ORDERED: DOCUSATE SODIUM 100 MG CAPSULE PO SCH (09:00)
[2018-09-19] MEDS ORDERED: CLOPIDOGREL 75 MG TABLET PO SCH (09:00)
[2018-09-19] MEDS ORDERED: amLODIPine 10 MG TABLET PO SCH (09:00)
[2018-09-19] MEDS: BENZOCAINE/MENTHOL 1 LOZENGE PO PRN ×5 (09:45→15:39)
[2018-09-19] MEDS ORDERED: VANCOMYCIN 1,000 MG in 0.9 % SODIUM CHLORIDE 250 ML IV ONE (10:00)
--- NOTE | 2018-09-19 12:10 | Discharge Summary ---
Medical - DS: Prov Patient information: Note initiated : 09/19/18 at 12:04 pm Service Date, if different from initiated Date: [] Patient: Scotty Toribio 78 y/o M admitted on 09/16/18 for shortness of breath, labored respirations. Chief Complaint: [] Date of admission: 09/16/18 19:21 Discharge date: 09/19/18 Admitting clinician: Farida Muir Consults: 09/16/18 Consult to Physician [CONS] Stat Comment: Consulting Provider: Farida Muir Reason For Exam: Physician to Consult Discharging clinician: Farida Muir Medical - DS: Meds - Discharge Medications Prescriptions: RX: Ipratropium/Albuterol [Duoneb] 3 ml NEB Q6HRT #120 ampul.neb RX: Levofloxacin [Levaquin] 750 mg PO Q48H #2 tablet RX: Metoprolol Succinate 50 mg PO DAILY #30 tab.er.24h RX: predniSONE [Prednisone] 40 mg PO [facility] #6 tablet Active and Home Medications: Home Medications Budesonide/Formoterol Fumarate [Symbicort 80-4.5 Mcg Inhaler] 10.2 gm IH BID 09/16/18 [History Confirmed 09/16/18 Last Taken Unknown] Clopidogrel Bisulfate [Plavix] 75 mg PO DAILY 09/16/18 [History Confirmed 09/16/18 Last Taken Unknown] Docusate Sodium [Stool Softener] 100 mg PO DAILY 09/16/18 [History Confirmed 09/16/18 Last Taken Unknown] Hydrochlorothiazide [Oretic] 25 mg PO DAILY 09/16/18 [History Confirmed 09/16/18 Last Taken Unknown] Losartan Potassium [Cozaar] 100 mg PO DAILY 09/16/18 [History Confirmed 09/16/18 Last Taken Unknown] Polyethylene Glycol 8000 [Polyethylene Glycol] 500 gm PO DAILY PRN 09/16/18 [History Confirmed 09/16/18 Last Taken Unknown] RX: Pantoprazole Sodium 40 mg PO Q48 09/16/18 [History Confirmed 09/16/18 Last Taken Unknown] Sertraline [Zoloft] 50 mg PO HS 09/16/18 [History Confirmed 09/16/18 Last Taken Unknown] Simvastatin [Zocor] 40 mg PO HS 09/16/18 [History Confirmed 09/16/18 Last Taken Unknown] amLODIPine BESYLATE [Amlodipine Besylate] 10 mg PO DAILY 09/16/18 [History Confirmed 09/16/18 Last Taken Unknown] cloNIDine HCL [Catapres] 0.1 mg PO BID 09/16/18 [History Confirmed 09/16/18 Last Taken Unknown] Medical - DS: Hosp Hospital course: Mr. Toribio is a 78 year old M and pulmonary, history of CVA with right-sided hemiplegia presents to the ER for evaluation of shortness of breath. According to the patient he has been short of breath going on for a week or 2, he has shortness of breath associated with cough, chest pain associated with cough, and some sputum production. The patient also was very fatigued and tired over the last few days. He has not had much to eat or drink over the last few days. He denies any other acute complaints or concerns. He denies any headache changes in vision difficulty in swallowing denies any nausea vomiting diarrhea abdominal pain denies any bowel bladder complaints denies any new joint pains. He was seen in the clinic [facility] in [place] and then sent to the emergency room for evaluation of shortness of breath and hypoxia. He was transferred from the emergency room over there to this hospital. On presentation the patient was afebrile temperature 98.4 heart rate 88 blood pressure 148/76 breathing 27/min saturating 91% on 5 L The labs show WBC of 12.4, hemoglobin 13.4 platelets 505 lactic acid 1.9 sodium 138 potassium 3.5 bicarbonate 27 creatinine elevated at 3.2 was 1.5 in February 2018. ABG was done shows pH of 7.48 PCO2 39 PO2 60% on 5 L of oxygen. Chest x-ray shows infiltrates versus atelectasis likely atelectasis. Patient is being admitted to the hospital for further management 09/17 Patient seen and examined no acute overnight events, feels breathing is somewhat better than yesterday. No new complaints or concerns reported. Patient does not want every 4 hours duo nebs we will switch to every 6 hours, WBC count trending down, renal function slightly worsened. Plan for renal sonogram. 09/18 Patient seen and examined, no acute overnight events or complaints. Feels much better he is nearly off oxygen now. Blood cultures positive for coag negative staph in 1 bottle only repeat cultures pending. Patient is on vancomycin. Renal function is improving, WBC up today [due to steroids?] 09/19 Pt doing well, feels he is back to baseline, labs stable, Repeat blood cultures are neg, GPC is likely contaminant, Pt still needs to be on oxygen, it seems he has waxing and waning oxygen needs. No wheeze or crackles on exam Oxygen saturation 87% on room air Oxygen saturation 93% on 3 L oxygen Pt will need continuous oxygen 3L due to his COPD In Summary Acute COPD exacerbation -resolved, pt back to baseline status at discharge, will complete course of steroids and abx, -continue bronchodilators at discharge Chronic hypoxic respiratory failure -stable, on 3 L oxygen Pneumonia, community acquired -was presumed on admission, X ray was reported as negative. Levoflox should cover for this. Acute on Chronic Renal Failure -creat is 3.2 at discharge, stable, renal usg neg, -outpatient Nephrology evaluation. Gram-positive cocci in blood cultures likely contaminant -no further treatment needed HTN -hold losartan and hctz at discahrge, -continue amlodipine 10mg, start on metoprolol 50mg once daily -follow up with PCP Discharge diagnosis: copd exacerbatin, pneuonia, - Time Spent with Patient Total time spent providing and/or coordinating discharge services: Greater than 30 minutes Medical - DS: Exam - Constitutional Vitals: Vital Signs Temp Pulse Pulse Resp BP BP BP 09/19/18 11:46 88 20 09/19/18 11:41 80 22 09/19/18 11:01 98.0 F 96 H 24 H 127/66 09/19/18 08:00 09/19/18 07:02 88 22 09/19/18 06:56 98.2 F 24 H 180/71 09/19/18 05:41 09/19/18 04:00 99.0 F 28 H 140/73 09/19/18 00:00 99.4 F H 24 H 127/66 09/18/18 20:12 93 H 09/18/18 20:00 98.6 F 24 H 124/69 09/18/18 18:47 85 18 09/18/18 18:32 87 18 09/18/18 16:00 97.9 F 87 16 133/67 Pulse Ox 09/19/18 11:46 93 09/19/18 11:41 87 L 09/19/18 11:01 90 09/19/18 08:00 91 09/19/18 07:02 91 09/19/18 06:56 95 09/19/18 05:41 96 09/19/18 04:00 88 L 09/19/18 00:00 92 09/18/18 20:12 91 09/18/18 20:00 09/18/18 18:47 87 L 09/18/18 18:32 09/18/18 16:00 90 Intake and Output 09/18/18 09/19/18 09/19/18 21:59 05:59 13:59 Intake Total 1320 / 3930 1350 / 3930 320 / 320 Output Total 250 / 1270 645 / 1270 250 / 250 Balance 1070 / 2660 705 / 2660 70 / 70 Intake: IV 1000 / 1000 Sodium Chloride 0.9% 1,000 ml @ 1000 / 1000 75 mls/hr IV .[id number] [facility] Rx#: [id number] Oral 1320 / 2530 350 / 2530 320 / 320 Output: Void Amount 250 / 1270 645 / 1270 250 / 250 Other: Meal Dinner Breakfast Percent of Meal Consumed 100% 100% Feeding Ability Independent Urine Appearance Clear Clear Clear Urine Color Dark Yellow Dark Yellow Bright Yellow Urine Odor Normal Strong Normal Stool Size Smear Small Stool Color Brown Brown Stool Consistency Soft Loose # Bowel Movements 1 1 Weight 276 lb 8 oz Additional comments: Constitutional; Afebrile, cooperative, alert, not in distress. Respiratory system: Air Entry equal on both sides, No crackles or wheezing, no rhonchi. CVS- Rate rhythm regular, S1,S2 heard, no gallop, no rub. 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, right sided weakness, chronic Medical - DS: Data Labs on day of discharge: Labs from last 24 hours 09/19/18 09/19/18 09/19/18 08:15 04:20 04:20 WBC 17.6 H RBC 3.87 L Hgb 11.9 L Hct 35.3 L MCV 91.1 MCH 30.8 MCHC 33.8 RDW 13.9 Plt Count 448 H MPV 7.8 Gran % 96.1 H Lymph % (Auto) 1.8 L Davis % (Auto) 2.1 Eos % (Auto) 0 Baso % (Auto) 0 Gran # 17.0 H Lymph # (Auto) 0.3 L Davis # (Auto) 0.4 Eos # (Auto) 0 Baso # (Auto) 0 Sodium 140 Potassium 3.8 Chloride 102 Carbon Dioxide 21 L Anion Gap 17.0 H BUN 48 H Creatinine 3.2 H GFR Calculation 17 Glucose 160 H Uric Acid 8.7 H Calcium 8.8 Phosphorus 3.4 Magnesium 2.0 Total Bilirubin 0.3 Direct Bilirubin < 0.2 GGT 21 AST 21 ALT 7 Alkaline Phosphatase 90 Lactate Dehydrogenase 277 H Total Protein 6.6 Albumin 3.3 Globulin 3.3 Albumin/Globulin Ratio 1.0 Triglycerides 106 Vancomycin Trough 15.9 Preliminary micro results at discharge 09/18/18 04:00 Blood Culture - Preliminary Blood 09/18/18 04:05 Blood Culture - Preliminary Blood 09/16/18 16:40 Blood Culture - Preliminary Blood 09/16/18 16:41 Blood Culture - Preliminary Blood Gram positive cocci Medical - DS: A/P - Patient/Caregiver Discharge Instructions Activity: increase activity as tolerated Diet: Cardiac Additional Instructions: Please use oxygen at all times, 3 L continuous Take your medications as prescribed. I have stopping, losartan and hydrochlorothiazide as these can worsen your kidne y function. I am starting you on metoprolol 50mg once daily in replacement Follow up with PCP in 1 week Follow up with nephrology in 2-3 weeks Go to the ER if worsening symptoms, chest pain, worsening shortness of breath, fever or any other acute concern. . - Follow up Plan Follow up with: Rocio August MD [Physician] - 10/09/18 1:00 pm (Check in at 12:45 pm for this appointment.) Disposition: Home Health Service Prognosis: Fair Rehab Potential: Fair I certify that the patient requires SNF services: No Overall status at discharge: patient is back to baseline Medical - DS: Qual - VTE Deep Vein Thrombosis/Pulmonary Embolism Present on Admission: No
[2018-09-20] MEDS ORDERED: LEVOFLOXACIN 750 MG/150 ML BAG IV SCH ×2 (09:00)
== END 2018-09-19 16:40 | disposition home health service (06) ==
LOC: ED 16:11 → ICU 19:20 → MEDSUR 09-18 16:09
PROVIDERS: ADMIT Internal Medicine; ATTEND Internal Medicine